=== PATIENT | male | born 1990 | race Asian ===

== ENCOUNTER 2024-10-15 08:28 | Day surgery (SDC) | payer OTHER ==
[2024-10-13 15:58] VITALS: BP 114/78
[~2024-10-15] VITALS: Ht 170.2 cm; Wt 73.1 kg
[~2024-10-15 08:28] MED LIST: IBLOOD GLUCOSE TEST STRIP 1 EA TEST VI PRN; LACTATED RINGER'S 1,000 ML IV SCH; LIDOCAINE HCL 1% 5 ML SDV INJ ONE; LIPITOR40 MG PO; METFORMIN HCL500 M3 PO; MIDAZOLAM HCL 5 MG/5 ML VIAL IV PRN; PROTONIX40 M1 PO; fentaNYL citrate 100 MCG/2 ML VIAL IV PRN; propofoL 200 MG/20 ML VIAL ONE
[2024-10-15 08:34] VITALS: BP 117/77
--- NOTE | 2024-10-15 09:25 | NUR ---
LE 0872 PT OFFERED INTERPRETATION SERVICES, PT USED PHONE CONSUMER RELATIONS COMPLAINT CLERK TO TRANSLATE. PT REFUSES INTERPRETATION SERVICES AND WOULD LIKE TO USE HIS PHONE CONSUMER RELATIONS COMPLAINT CLERK INSTEAD. FORM SIGNED AND IN PT FILE.
[2024-10-15] MEDS ORDERED: LACTATED RINGER'S 1,000 ML IV ONE (09:59)
--- NOTE | 2024-10-15 10:16 | NUR ---
10/15/24 1016 Jennifer Casper 1004-PT ARRIVES TO PACU VIA STRETCHER, RESTING ON LT SIDE, PT NOT RESPONISVE TO NOXIOUS STIMULI, OPA IN PLACE, VSS ON 10L VIA MASK, RR EVEN AND UNLABORED. 1010-PT BP LOW, ANESTHESIA AT BEDSIDE AND AWARE, IV MEDICATION GIVEN BY ANESTHESIA TO INCREASE BP.
[2024-10-15 10:46] VITALS: BP 100/78
--- NOTE | 2024-10-17 08:11 | OR ---
[facility] [address] [place], [place] [address] Signed DATE OF OPERATION: 10/15/2024 SURGEON: Adriana Dugan MD PREOPERATIVE DIAGNOSES: 1. Gastroesophageal reflux disease. 2. Bloating. 3. Dyspepsia. 4. Change in bowel habits with ribbonlike stool. POSTOPERATIVE DIAGNOSIS: 1. Mild diffuse gastritis. 2. A tiny sliding hiatal hernia. 3. Internal and external hemorrhoids. PROCEDURES: 1. EGD with CLOtest and biopsies of the duodenum, pyloric bulb, and antrum. 2. Colonoscopy without biopsies. ESTIMATED BLOOD LOSS: None. INDICATIONS: Mariza is a 33-year-old gentleman from [place]. 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 He has been working with his primary care provider. He was asked to see me for both upper and lower endoscopy. He generally will use his phone to help interpret, although he and his understand Irish fairly well. We did have an full time staff interpreter on the phone line in our office. He is describing acid reflux, bloating and dyspepsia with an upset stomach. He has been on Protonix and he thinks it has helped a little bit. He is also concerned that his stool is now ribbonlike. He said that represents a change in bowel habits. In the office, I gave him a pamphlet on both upper and lower endoscopy. We had gone over that with the help of the full time staff interpreter. There is risk including, but not limited to gas bloating, crampy abdominal pain, bleeding, perforation requiring surgery, and missed diagnosis. We also reviewed the written instructions for our bowel prep line by line again with the help of the full time staff interpreter. He understands that with his diabetes and his language barrier, it is much safer that we have monitored anesthesia care with propofol infusion. That actually worked out very nicely today. He thought his brother would take him home afterwards. His is unable to drive. They had expressed understanding, wished to proceed. Electronically Signed By: ADRIANA DUGAN MD 10/17/24 0811 PATIENT NAME: MARIZA SINGH OPERATIVE REPORT DATE OF : 89 REPORT #: [id number] PHYSICIAN: ADRIANA DUGAN MD PCP: BAMBI NICOLE MD REPORT IS CONFIDENTIAL AND NOT TO BE RELEASED WITHOUT AUTHORIZATION [address] [address] Signed DESCRIPTION OF PROCEDURE: Mariza was taken into our endoscopy suite, placed in the supine semi-recumbent position. A bite block was utilized. He was given monitored anesthesia care with propofol infusion per our nurse court deputy. The adult gastroscope was introduced and advanced out into the duodenum. We went ahead and took biopsies from the duodenum, pyloric channel, and antrum because of his symptoms. We did not see any inflammatory changes in the duodenum or pyloric channel per se. Maybe a little lymphoplegia in the pyloric bulb. The stomach showed some very mild superficial erythematous changes. We also took a biopsy of the antrum for CLOtest. Upon retroflexion of scope, it looks like he has a very tiny sliding type hiatal hernia. The scope was withdrawn up through the area of the GE junction, which was compliant without stricture. There was no gastric or esophageal varices. He had very minimal disruption to the Z-line. Not much in the way of any inflammation or irritation. No Riley's mucosa. No distal esophagitis. The middle and upper esophagus were unremarkable. His vocal cords and arytenoids seemed to be unremarkable as well. After this, the gas had been suctioned out, the gastroscope removed. Mariza tolerated the upper endoscopy quite well. Mariza was rotated into the left lateral decubitus position. He was maintained on IV sedation with propofol per the nurse court deputy. A digital rectal exam was performed. He does have small to moderate sized circumferential external hemorrhoids. He had good sphincter tone. There were no masses. The prostate is not enlarged. The adult colonoscope was introduced and advanced under direct visualization of the camera into the cecum itself. It took just a little abdominal compression to get the scope all the way into the cecum. His prep was quite excellent. We could easily see the appendiceal orifice and ileocecal valve. He had no pathology throughout the entire colon or rectum. He is small of build and it took a minute to retroflex the scope and we finally could see that he has minimal to moderate internal hemorrhoid columns as well. After this, the gas was suctioned out and the colonoscope removed. Mariza tolerated the procedure quite well. RECOMMENDATIONS: Mariza will follow up in my office in 7 to 14 days to review his results. He probably would continue to benefit from the Protonix. It looks like he has internal and external hemorrhoids that probably swell intermittently and cause the change in caliber of his stool. Adriana Dugan MD Electronically Signed By: ADRIANA DUGAN MD 10/17/24 0811 PATIENT NAME: MARIZA SINGH OPERATIVE REPORT DATE OF : [birth year] REPORT #: [id number] PHYSICIAN: ADRIANA DUGAN MD PCP: BAMBI NICOLE MD REPORT IS CONFIDENTIAL AND NOT TO BE RELEASED WITHOUT AUTHORIZATION [address] [place] [address] Signed ALB/MODL /[id number] cc: MD Bambi Lilly MD Copies: ADRIANA DUGAN MD, RUSSEL J MD ~ Electronically Signed By: ADRIANA DUGAN MD 10/17/24 0811 PATIENT NAME: MARIZA SINGH OPERATIVE REPORT DATE OF : [birth year] REPORT #: [id number] PHYSICIAN: ADRIANA DUGAN MD PCP: BAMBI NICOLE MD REPORT IS CONFIDENTIAL AND NOT TO BE RELEASED WITHOUT AUTHORIZATION
--- NOTE | 2024-10-19 08:41 | PATH ---
[facility] [address] [place], [place] [address] Signed SPECIMEN(S): A DUODENAL BIOPSY SPECIMEN(S): B DUODENAL BULB BIOPSY SPECIMEN(S): C ANTRUM/PYLORUS BIOPSY SPECIMEN SOURCE: A. DUODENAL BIOPSY B. DUODENAL BULB BIOPSY C. ANTRUM/PYLORUS BIOPSY CLINICAL HISTORY: Pre-: GERD, internal hemorrhoids FINAL PATHOLOGIC DIAGNOSIS: A. Duodenum, biopsy: - Duodenal mucosa with no significant pathologic changes B. Duodenum, bulb, biopsy: - Duodenal mucosa with no significant pathologic changes C. Stomach, antrum/pylorus, biopsy: - Gastric antral mucosa with no significant pathologic changes - Negative for Helicobacter pylori with HE stains BRP MICROSCOPIC EXAMINATION: Histologic sections of all submitted blocks are examined by light microscopy. These findings, together with the gross examination, support the pathologic diagnosis. GROSS DESCRIPTION: A. The specimen, labeled and designated "Nancy Singh, duodenal biopsy," is received in formalin and consists of two esquivel soft tissue fragments, ranging from 0.1-0.3 cm. Entirely submitted in (A1). B. The specimen, labeled and designated "Nancy Singh, duodenal bulb biopsy," is received in formalin and consists of one esquivel soft tissue fragment, 0.4 cm. Entirely submitted in (B1). C. The specimen, labeled and designated "Singh, D, antrum/pylorus biopsy," is received in formalin and consists of one esquivel soft tissue fragment, 0.5 cm. Entirely submitted in (C1). AB (under the direct supervision of a pathologist) The Gross Description was prepared using a voice recognition system. The report was reviewed for accuracy; however, sound-alike word errors, addition and/or deletions may occur. If there is any PATIENT NAME: OCTAVIA SINGH PATHOLOGY DATE OF : [birth year] REPORT #: [id number] PHYSICIAN: PRISCILLA CASTRO PCP: BAMBI NICOLE MD REPORT IS CONFIDENTIAL AND NOT TO BE RELEASED WITHOUT AUTHORIZATION [facility] [address] [place], [place] [address] Signed question about this report, please contact Client Services. ADDITIONAL NOTES: Immunohistochemical and/or in situ hybridization studies if performed in this case included appropriate positive controls that reacted as expected. This test was developed and its performance characteristics determined by [facility]. It has not been cleared or approved by the U.S. Food and Drug Administration. The FDA has determined that such clearance or approval is not necessary. This test is used for clinical purposes. It should not be regarded as investigational or for research. [facility] is certified under the Clinical Laboratory Improvement Amendments of 1988 (CLIA) as qualified to perform high complexity clinical laboratory testing. PERFORMING LABORATORY: Technical component was performed by [facility], [address] [place] [id number] (CLIA# [id number]). Professional interpretation was performed by [facility] - [facility], [address] [place] [address] (CLIA#: [id number]). Diagnostician: Javi Hall MD Pathologist Electronically Signed 10/19/2024 Copies: ~ PATIENT NAME: OCTAVIA SINGH PATHOLOGY DATE OF : [birth year] REPORT #: [id number] PHYSICIAN: PRISCILLA PATHOLOGY PCP: BAMBI NICOLE MD REPORT IS CONFIDENTIAL AND NOT TO BE RELEASED WITHOUT AUTHORIZATION
== END 2024-10-15 11:00 | disposition home or self-care (01) ==
LOC: DS 08:28
PROVIDERS: ATTEND Colon & Rectal Surgery
PROC: 0DB78ZX Excision of Stomach, Pylorus, Via Natural or Artificial Opening Endoscopic, Diagnostic (ICD-10-PCS; 2024-10-15)
PROC: 0DJD8ZZ Inspection of Lower Intestinal Tract, Via Natural or Artificial Opening Endoscopic (ICD-10-PCS; principal; 2024-10-15 09:45)
PROC: 0DB98ZX Excision of Duodenum, Via Natural or Artificial Opening Endoscopic, Diagnostic (ICD-10-PCS; 2024-10-15 09:45)
DX: K29.70 Gastritis, unspecified, without bleeding (principal); K44.9 Diaphragmatic hernia without obstruction or gangrene; R19.4 Change in bowel habit; K64.8 Other hemorrhoids; K64.4 Residual hemorrhoidal skin tags; K21.9 Gastro-esophageal reflux disease without esophagitis; E11.9 Type 2 diabetes mellitus without complications; E78.5 Hyperlipidemia, unspecified; Z79.84 Long term (current) use of oral hypoglycemic drugs; Z79.899 Other long term (current) drug therapy
CPT/HCPCS: 00813; 36415; 87077; 88305; J2704; J7121